=== PATIENT | male | born 1960 ===

== ENCOUNTER 2020-05-27 17:25 | Emergency (ER) | payer OTHER ==
[~2020-05-27] VITALS: Ht 185.4 cm; Wt 113.4 kg
[2020-05-27 17:46] VITALS: BP 139/68
--- NOTE | 2020-05-27 17:52 | NUR ---
Patient transferred to [facility] in wheelchair.
[2020-05-27 20:10] VITALS: BP 139/68
--- NOTE | 2020-05-27 20:10 | NUR ---
pt left without paper work. pt still had wrist band on.
== END 2020-05-27 20:10 | disposition home or self-care (01) ==
LOC: MED 17:25
DX: F10.129 Alcohol abuse with intoxication, unspecified (principal); Z87.19 Personal history of other diseases of the digestive system; Z79.899 Other long term (current) drug therapy; Y90.9 Presence of alcohol in blood, level not specified
CPT/HCPCS: 99283